=== PATIENT | male | born 1965 | race Caucasian/White ===

== ENCOUNTER 2018-05-09 15:09 | Emergency (ER) | END 2018-05-09 20:52 | disposition home or self-care (01) ==

== ENCOUNTER 2018-08-05 18:20 | Emergency (ER) | payer BC ==
[~2018-08-05] VITALS: Ht 170.2 cm; Wt 117.6 kg
[~2018-08-05 18:20] MED LIST: HYDR-3980 PO; HYDR-4011 PO; IBUP-1542 PO; NAPR-985 PO; ONDA4TAB35 PO
[2018-08-05 18:35] VITALS: BP 140/85; PULSE 108; RESP 24; Ht 170.2 cm; Wt 117.6 kg
--- NOTE | 2018-08-05 20:07 | ERD ---
ER Documentation Chief Complaint Chief Complaint rt knee pain since this am. no fall/trauma +redness and swelling HPI 53-year-old male presents with redness and swelling to the right knee since this morning. 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 He is able to ambulate. Denies fevers, chills, numbness, tingling. Denies past medical history. Denies allergies. Denies medications. Denies surgeries. Denies alcohol, tobacco, drug use. Up to date on vaccines. ROS All systems reviewed and are negative except as per history of present illness. Medications Home Meds Active Scripts Oxycodone HCl/Acetaminophen (Percocet 5-325 mg Tablet) 1 Each Tablet, 1-2 EACH PO Q6 for pain, #14 TAB 0 Refills Prov:JAVIER LINDSAY 08/05/18 Ibuprofen* (Motrin*) 600 Mg Tab, 600 MG PO Q6H PRN for PAIN AND OR ELEVATED TEMP, #30 TAB Prov:JAVIER LINDSAY 08/05/18 Cephalexin* (Keflex*) 500 Mg Capsule, 500 MG PO QID for bursitis for 14 Days, #56 CAP Prov:JAVIER LINDSAY 08/05/18 Sulfamethoxazole/Trimethoprim* (Bactrim Ds* Tablet) 1 Each Tablet, 1 TAB PO BID for bursitis for 14 Days, #28 TAB Prov:JAVIER LINDSAY 08/05/18 Ibuprofen* (Motrin*) 600 Mg Tab, 600 MG PO Q6, #30 TAB Prov:MI FONTANEZ-C 05/09/18 Hydrocodone/Acetaminophen ([place] 5-325 Tablet) 1 Each Tablet, 1 TAB PO Q6H PRN for PAIN, #20 TAB Prov:MI FONTANEZ-C 05/09/18 Ibuprofen* (Motrin*) 600 Mg Tab, 600 MG PO Q8 for 10 Days, #30 TAB 0 Refills Prov:RADHA ETIENNE-C 05/12/16 Hydrocodone/Acetaminophen ([place] 5-325 Tablet) 1 Each Tablet, 1 TAB PO QHS PRN for PAIN, #7 TAB 0 Refills Prov:RADHA ETIENNE PA-C 16 Hydrocodone/Acetaminophen ([place] 10-325 Tablet) 1 Each Tablet, 1 TAB PO Q6H PRN for PAIN, #7 TAB Prov:HANSA JOHNS PA-C 05/03/16 Naproxen* (Naprosyn*) 500 Mg Tablet, 500 MG PO BID PRN for PAIN AND/OR INFLAMMATION, #30 TAB Prov:HANSA JOHNS PA-C 05/03/16 Ondansetron Hcl* (Zofran* ODT) 4 mg -ODT Tab.disper, 4 MG PO Q6H PRN for NAUSEA AND/OR VOMITING, #5 TAB Prov:ROBBI STARKEY PA-C 06/21/15 Allergies Allergies: Coded Allergies: No Known Allergy (Unverified , 06/21/15) PMhx/Soc History of Surgery: No Anesthesia Reaction: No Hx Neurological Disorder: No Hx Respiratory Disorders: No Hx Cardiac Disorders: No Hx Psychiatric Problems: No Hx Miscellaneous Medical Probl: No Hx Alcohol Use: Yes Hx Substance Use: No Hx Tobacco Use: No Smoking Status: Never smoker FmHx Family History: No diabetes, No coronary disease, No other Physical Exam Vitals Vital Signs Date Temp Pulse Resp B/P (MAP) Pulse Ox O2 O2 Flow FiO2 Time Delivery Rate 08/05/18 98.2 108 24 140/85 95 18:35 (103) Physical Exam Const: No acute distress Resp: Clear to auscultation bilaterally Cardio: Regular rate and rhythm, no murmurs Ext: Erythema, edema, and tenderness to palpation over prepatellar area of right knee. Patient able to ambulate. Full range of motion. No discharge noted. Neur: Awake and alert Psych: Normal Mood and Affect Results 24 hrs Current Medications Medications Dose Sig/Yana Start Time Status Last (Trade) Ordered Route PRN Stop Time Admin Dose Reason Admin Oxycodone/ 1 tab ONCE ONCE 08/05/18 DC 08/05/18 Acetaminophen PO 20:30 08/05/18 20:14 (Percocet 20:31 (5/ 325)) Ketorolac 60 mg ONCE STAT 08/05/18 DC 08/05/18 Tromethamine IM 20:08 08/05/18 20:14 (Toradol) 20:10 Procedures/MDM DIAGNOSTIC IMAGING REPORT Patient: YANE HICKS : 1965 Age: 53 Sex: M MR #: [id number] DOS: 08/05/182006 Ordering MD: JAVIER LINDSAY Location: [facility] Room/Bed: PROCEDURE: XR Knee. CLINICAL INDICATION: R right knee pain TECHNIQUE: AP, lateral and tunnel view of the right knee were obtained. The images reviewed on a PACS workstation. COMPARISON: None. FINDINGS: Mineralization is intact. No displaced fracture. Marginal osteophyte formation in the patellofemoral compartment as well as tibial spine hypertrophy and notch osteophyte formation. No significant joint effusion. Prominent enthesopathy in the proximal tibia and fibula. More focal hypertrophic change in the medial posterior tibia likely additional enthesopathy. Soft tissue swelling in the anterior knee. Soft tissue fullness about the calf. IMPRESSION: 1. Soft tissue fullness in the anterior knee. Soft tissue fullness about the calf especially medially. MRI or ultrasound may be obtained if clinically indicated. 2. No acute fracture. 3. Mild degenerative changes as above. RPTAT: [facility] Macario Giang Physician Date Time Electronically viewed and signed by Macario Giang Physician on 08/05/2018 21:02 RG/ CC: JAVIER LINDSAY [id number] ER Course: X-ray Knee 3V, see results above. Knee immobilizer applied, distal sensation and pulses intact after application. Patient given Percocet. Patient given crutches. MDM: 53-year-old male presents with redness and swelling to the right knee since this morning. 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 He is able to ambulate. Denies fevers, chills, numbness, tingling. Due to exam findings and patient history decisions was made to take x-rays which were negative. 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 Patient given Rx for Bactrim and Keflex as well as ibuprofen and Percocet. Patient discharged with strict ER precautions. Patient advised to follow up with PMD. All questions answered at discharge. Departure Diagnosis: Primary Impression: Prepatellar bursitis Laterality: right Qualified Codes: M70.41 - Prepatellar bursitis, right knee Condition: Stable ANGÉLICAJAVIER Aug 05, 2018 20:06
[2018-08-05] MEDS ORDERED: KETOROLAC 60 MG INJ IM STA (20:08)
[2018-08-05] MEDS ORDERED: CEPH-443 PO (20:15)
[2018-08-05] MEDS ORDERED: SULF1TAB31 PO (20:15)
[2018-08-05] MEDS ORDERED: IBUP-1542 PO (20:15)
[2018-08-05] MEDS ORDERED: OXYC-279 PO (20:16)
[2018-08-05] MEDS ORDERED: OXYCODONE/ACETAMINOPHEN (5/325) TAB PO ONE (20:30)
[2018-08-28] MEDS ORDERED: MTF1000T PO (11:25)
== END 2018-08-05 22:00 | disposition home or self-care (01) ==
LOC: FTE 18:20
DX: M70.41 Prepatellar bursitis, right knee (principal); Y93.9 Activity, unspecified
CPT/HCPCS: 29515; 73562; 96372; 99284; J1885

== ENCOUNTER 2018-08-13 10:12 | Emergency (ER) | payer BC ==
[~2018-08-13] VITALS: Ht 167.6 cm; Wt 117.8 kg
[~2018-08-13 10:12] MED LIST changes: +CEPH-443 PO; +OXYC-279 PO; +SULF1TAB31 PO
[2018-08-13 10:15] VITALS: Ht 167.6 cm; Wt 117.8 kg
[2018-08-13] MEDS ORDERED: METHYLPREDNISOLONE 125 MG INJ IV ONE (11:00)
[2018-08-13 11:44] VITALS: BP 140/89; PULSE 90; RESP 20
[2018-08-13] MEDS ORDERED: PRED20TA PO (11:48)
--- NOTE | 2018-08-13 11:51 | ERD ---
ER Documentation Chief Complaint Chief Complaint right leg swelling/redness - had Achilles Tendon surgery in may 2018 HPI 53-year-old male presents the emergency department complaining of right leg swelling and redness. Patient is recently status post an Achilles tendon surgery repair in 2018. Approximately 1 week ago he was evaluated in our emergency department with a prepatellar bursitis and started on Keflex and Bactrim. Over the last few days, he developed increasing redness and swelling in the right lower extremity which spread up to his abdominal wall. He reported no fevers, chills, difficulty breathing. ROS All systems reviewed and are negative except as per history of present illness. Medications Home Meds Active Scripts Prednisone* (Prednisone*) 20 Mg Tab, 60 MG PO DAILY for 5 Days, TAB Prov:KAY DEMARCO 08/13/18 Discontinued Scripts Oxycodone HCl/Acetaminophen (Percocet 5-325 mg Tablet) 1 Each Tablet, 1-2 EACH PO Q6 for pain, #14 TAB 0 Refills Prov:JAVIER LINDSAY 08/05/18 Ibuprofen* (Motrin*) 600 Mg Tab, 600 MG PO Q6H PRN for PAIN AND OR ELEVATED TEMP, #30 TAB Prov:JAVIER LINDSAY 08/05/18 Cephalexin* (Keflex*) 500 Mg Capsule, 500 MG PO QID for bursitis for 14 Days, #56 CAP Prov:JAVIER LINDSAY 08/05/18 Sulfamethoxazole/Trimethoprim* (Bactrim Ds* Tablet) 1 Each Tablet, 1 TAB PO BID for bursitis for 14 Days, #28 TAB Prov:JAVIER LINDSAY 08/05/18 Ibuprofen* (Motrin*) 600 Mg Tab, 600 MG PO Q6, #30 TAB Prov:MI FONTANEZ PA-C 05/09/18 Hydrocodone/Acetaminophen ([place] 5-325 Tablet) 1 Each Tablet, 1 TAB PO Q6H PRN for PAIN, #20 TAB Prov:MI FONTANEZ PA-C 05/09/18 Ibuprofen* (Motrin*) 600 Mg Tab, 600 MG PO Q8 for 10 Days, #30 TAB 0 Refills Prov:RADHA ETIENNE PA-C 05/12/16 Hydrocodone/Acetaminophen ([place] 5-325 Tablet) 1 Each Tablet, 1 TAB PO QHS PRN for PAIN, #7 TAB 0 Refills Prov:RADHA ETIENNE PA-C 05/12/16 Hydrocodone/Acetaminophen ([place] 10-325 Tablet) 1 Each Tablet, 1 TAB PO Q6H PRN for PAIN, #7 TAB Prov:HANSA JOHNS PA-C 05/03/16 Naproxen* (Naprosyn*) 500 Mg Tablet, 500 MG PO BID PRN for PAIN AND/OR INFLAMMATION, #30 TAB Prov:HANSA JOHNS PA-C 05/03/16 Ondansetron Hcl* (Zofran* ODT) 4 mg -ODT Tab.disper, 4 MG PO Q6H PRN for NAUSEA AND/OR VOMITING, #5 TAB Prov:ROBBI STARKEY PA-C 06/21/15 Allergies Allergies: Coded Allergies: No Known Allergy (Unverified , 06/21/15) PMhx/Soc History of Surgery: Yes (MAY 2017 ANKLE SURGERY) Anesthesia Reaction: No Hx Neurological Disorder: No Hx Respiratory Disorders: No Hx Cardiac Disorders: No Hx Psychiatric Problems: No Hx Miscellaneous Medical Probl: No Hx Alcohol Use: Yes Hx Substance Use: No Hx Tobacco Use: No Smoking Status: Never smoker FmHx Noncontributory for chief complaint Physical Exam Vitals Vital Signs Date Temp Pulse Resp B/P (MAP) Pulse Ox O2 O2 Flow FiO2 Time Delivery Rate 08/13/18 90 20 140/89 99 Room Air 11:44 (106) 08/13/18 105 19 156/94 97 10:15 (114) Physical Exam GENERAL: The patient is well developed and appropriate for usual state of health in no apparent distress HEENT: Pupils equal, round, and reactive to light. EOMI. There is no scleral icterus. NECK: C-spine is soft and supple, there is no meningismus. There is no cervical lymphadenopathy. LUNGS: Clear to auscultation bilaterally. There are no rales, wheezes or rhonchi. HEART: Regular rate and rhythm, no murmurs, clicks, rubs or gallops. ABDOMEN: Soft, non-tender, non-distended. There are bowel sounds in all four quadrants. No rebound or guarding. EXTREMITIES: There is no peripheral cyanosis or edema. No focal swelling or erythema. NEURO: The patient moves all four extremities with 5/5 strength. Cranial nerves II - XII are intact. Normal gait. Alert and oriented SKIN: The Achilles tendon repair seems to be healing nicely. There is an area of erythema and cellulitis surrounding the right lower extremity at the tib-fib area. There is no crepitus. There also appears to be an allergic type reaction in that same area which then goes on to the abdominal wall. There is no abdominal wall cellulitis. HEME/LYMPHATIC: There is no evidence of excessive bruising or lymphedema. PSYCHIATRIC: The patient does not appear anxious or depressed. Result Diagram: 08/13/18 1045 08/13/18 1045 Results 24 hrs Laboratory Tests Test 08/13/18 10:45 White Blood Count 6.7 10^3/ul Red Blood Count 5.37 10^6/ul Hemoglobin 15.3 g/dl Hematocrit 45.3 % Mean Corpuscular Volume 84.4 fl Mean Corpuscular Hemoglobin 28.5 pg Mean Corpuscular Hemoglobin Concent 33.8 g/dl Red Cell Distribution Width 12.6 % Platelet Count 291 10^3/UL Mean Platelet Volume 9.8 fl Immature Granulocytes % 0.400 % Neutrophils % 63.5 % Lymphocytes % 23.7 % Monocytes % 6.1 % Eosinophils % 5.7 % Basophils % 0.6 % Nucleated Red Blood Cells % 0.0 /100WBC Immature Granulocytes # 0.030 10^3/ul Neutrophils # 4.2 10^3/ul Lymphocytes # 1.6 10^3/ul Monocytes # 0.4 10^3/ul Eosinophils # 0.4 10^3/ul Basophils # 0.0 10^3/ul Nucleated Red Blood Cells # 0.0 10^3/ul Sodium Level 141 mmol/L Potassium Level 4.1 mmol/L Chloride Level 102 mmol/L Carbon Dioxide Level 27 mmol/L Anion Gap 12 Blood Urea Nitrogen 24 mg/dl Creatinine 0.97 mg/dl Est Glomerular Filtrat Rate mL/min > 60 mL/min Glucose Level 115 mg/dl Calcium Level 8.5 mg/dl Current Medications Medications Dose Sig/Yana Start Time Status Last (Trade) Ordered Route PRN Stop Time Admin Dose Reason Admin 125 mg ONCE ONCE 08/13/18 DC 08/13/18 Methylprednis IV 11:00 10:53 olone Sodium 08/13/18 11:01 Succinate (Solu-Medrol) Procedures/MDM Patient was taken to a room, seen and evaluated. Comfort measures were initiated. Diagnostic tests were ordered and reviewed. REEVALUATION: Patient remained comfortable and stable in the emergency department. Diagnostic tests were discussed with the patient MEDICAL DECISION MAKIN-year-old male presents the emergency department with what appears to be either an ongoing cellulitis or an allergic type reaction. From the standpoint of the cellulitis, he does not appear to be septic. I will continue him on the Keflex. I am asking him to stop the Bactrim in case this is in fact an allergic reaction as the Bactrim can cause Antoine-Je syndrome. However, patient does not appear to have systemic concerns with no evidence of anaphylaxis. Patient is otherwise stable and nontoxic and appropriate for outpatient care. Departure Diagnosis: Primary Impression: Allergic reaction Condition: Stable Patient Instructions: Allergic Reaction, Drug Additional Instructions: See your doctor for follow-up as discussed. Take a copy of your test results, if appropriate, to this follow-up visit. See your doctor or return here if your symptoms do not improve as expected. At any time, please return to the emergency department for any change or worsening in her symptoms. KAY DEMARCO Aug 13, 2018 11:51
[2018-08-13] MEDS ORDERED: BEN25 PO (11:54)
[2018-08-28] MEDS ORDERED: MTF1000T PO (11:25)
== END 2018-08-13 12:01 | disposition home or self-care (01) ==
LOC: E/R 10:12
DX: R22.41 Localized swelling, mass and lump, right lower limb (principal)
CPT/HCPCS: 80048; 85025; 96374; 99284; J2930